=== PATIENT | female | born 1990 | race Caucasian/White ===

== ENCOUNTER 2018-03-12 06:07 | Day surgery (SDC) | payer OTHER ==
[~2018-03-12] VITALS: Ht 157.5 cm; Wt 66.8 kg
[~2018-03-12 06:07] MED LIST: ALBU90OI INH; Amoxicillin500 MG PO; Colace100 MG PO; HYDR1TAB94 PO; IBUP800 PO; SPACE CHAMBER1 EACH MC; TRAM50 PO
[2018-03-12] MEDS ORDERED: IBUPROFEN200 MG PO (06:40)
== END 2018-03-12 09:33 | disposition home or self-care (01) ==
LOC: ORSCSDS 06:07
PROVIDERS: Obstetrics & Gynecology
PROC: 0UB14ZZ Excision of Left Ovary, Percutaneous Endoscopic Approach (ICD-10-PCS; principal; 2018-03-12 07:30)
PROC: 0UB64ZZ Excision of Left Fallopian Tube, Percutaneous Endoscopic Approach (ICD-10-PCS; principal; 2018-03-12 07:30)
DX: N83.202 Unspecified ovarian cyst, left side (principal); F17.210 Nicotine dependence, cigarettes, uncomplicated
CPT/HCPCS: 88305; J0171; J1100; J2250; J2370; J2405; J2710; J3010; J7120

== ENCOUNTER 2018-03-17 11:23 | Emergency (ER) | payer OTHER ==
[~2018-03-17] VITALS: Ht 157.5 cm; Wt 67.6 kg
[~2018-03-17 11:23] MED LIST changes: +IBUPROFEN200 MG PO
[2018-03-17] MEDS ORDERED: Zofran Odt4 MG SL (11:47)
[2018-03-17] MEDS ORDERED: BISA10S PR (11:47)
[2018-03-17] MEDS ORDERED: Percocet 5-3251 EACH PO (11:47)
== END 2018-03-17 11:57 | disposition home or self-care (01) ==
LOC: ER 11:23
DX: G89.18 Other acute postprocedural pain (principal); R10.32 Left lower quadrant pain; F17.200 Nicotine dependence, unspecified, uncomplicated; Z90.721 Acquired absence of ovaries, unilateral
CPT/HCPCS: 99283